=== PATIENT | female | born 2000 | race Caucasian/White ===

== ENCOUNTER 2025-03-28 18:00 | Emergency (ER) | payer BC, SELFPAY ==
[2025-03-28 18:11] VITALS: BP 128/75; PULSE 70; RESP 18; TEMP 37.1; O2SAT 100; BMI 36.0
--- NOTE | 2025-03-28 18:19 | ED_ITS ---
<Statement entered by José Miguel Adames MD - 03/28/25 20:27> I was consulted by the [facility], and we discussed the complexity of the problems being addressed. I approved the treatment and management plan for this patient's care in the emergency department, thus performing a substantive portion of the medical decision making. José Miguel Adames MD, KIKA, FACEP Discharge Plan Disposition Patient Disposition: Home, Self-Care Condition: Good Prescriptions Prescriptions: No Action azithromycin 250 mg tablet See Rx Instructions PO .COMPLEX Qty: 6 0RF Rx Instructions: For 250 mg dose pack: take 500 mg today (day 1), then 250 mg for 4 days (days 2-5) PO fluticasone propionate [Flonase Allergy Relief] 50 mcg/actuation spray,suspension 1 spray intranasal DAILY Qty: 10 1RF Rx Instructions: administer into each nostril Referrals Follow up/Referrals: Kim Chappell MD [Primary Care Provider, Medical] - See instructions Activity Restrictions/Add. Instructions Additional Instructions/Restrictions: I recommend Tylenol alternating with ibuprofen for pain and swelling. Wear your finger splint for comfort. If you have any new or worsening signs or symptoms follow-up with your PCP return to the ER as needed. Clinical Impressions Clinical Impression: Superficial laceration of fingernail Print Language Print Language: Greenlandic Discharge ED Provider: José Miguel Adames General Adult HPI General Chief complaint: Extremity Injury, Upper Stated complaint: Sent by [facility] Smashed L hand Index Finger Time Seen by Provider: 03/28/25 18:19 Mode of Arrival: Ambulatory Source of Information: Patient Description of Symptoms (Recalled from ER Triage Doc. by RN): PT arrived for evaluation of left pointer finger, patient smashed finger at 1200 with two stones. PT took Tylenol at 1230. Denies blood thinners. PT doesnt recall receiving a tetanus shot within the last 5 years. PT did go to a [facility] and advised her to come tot he ED r/t having acrylic nails. History of Present Illness HPI narrative: Patient presents for evaluation of left finger injury. Patient smashed the tip of her left index finger between 2 rocks. She has acrylic nails and was seen at the [facility] but sent here for further evaluation. She denies any numbness or tingling loss of motor or sensory. Related Data Previous Rx's ?Medication ?Instructions ?Recorded azithromycin 250 mg tablet See Rx Instructions PO .COM PLEX #6 12/29/22 tabs fluticasone propionate 50 1 spray intranasal DAILY #10 mL 12/29/22 mcg/actuation nasal spray,suspension (Flonase Allergy Relief) Allergies Allergy/AdvReac Type Severity Reaction Status Date / Time amoxicillin (AMOXICILLIN) Allergy Mild Verified 12/29/22 12:59 [facility] Disclaimer: The information contained in this section may have been updated after the pat ient was seen, as this information can be updated by other users. Surgical History (Updated 12/29/22 @ 13:31 by Aubrie Barnhart APRN) History of tonsillectomy Social History (Updated 12/29/22 @ 13:01 by Roslyn Mccallum CMA) Smoking Status: Current every day smoker alcohol intake: never substance use type: denies use current occupational status: employed Travel in the last 8 weeks?: None marital status: single Have you lived/traveled outside [place] in past 30 days?: No Contact w/someone who lives/traveled outside US past 30 days?: No Exposure to someone with infectious disease in past 14 days?: No Do you have a fever (greater than 100.4 F or 38 C)?: No Have you tested positive for COVID-19?: No Exposed to someone with COVID-19 in past 14 days?: No Do you have a sore throat?: No Do you have a cough?: No Do you have any weakness?: No Do you have any diarrhea?: No Are you experiencing any unusual bleeding?: No Do you have any muscle aches/pain?: No Do you have any abdominal pain?: No Are you experiencing loss of taste or smell?: No ROS Obtained: Yes Systems reviewed as appropriate & no additional complaints except as documented Physical Exam General General appearance: alert and in no apparent distress Respiratory Respiratory exam: Present normal lung sounds bilaterally Cardiovascular Cardiovascular exam: Present regular rate Neurological Exam Neurological exam: Present alert and oriented X3 Medical Decision Making Medical Records Screening: Per USPSTF and CDC recommendations, given the prevalence of disease in our region, it is our hospital?s policy to screen for HIV and viral Hepatitis for all patients aged 18 and over and those with ongoing risk factors. Silas Inquiry Pt receiving controlled substance: No Vital Signs: 03/28/25 18:11 Temperature 98.7 F Temperature Source Oral Pulse Rate [Right] 70 Respiratory Rate 18 Blood Pressure [Right Arm] 128/75 Blood Pressure Mean [Right Arm] 92 02 Sat by Pulse Oximetry 100 Oxygen Delivery Method Room Air Orders (Tests/Meds): ED MEDICATIONS Discontinued Medications Generic Name Dose Route Start Last Admin Trade Name Maria Teresa PRN Reason Stop Dose Admin Acetaminophen 1,000 mg 03/28/25 18:22 03/28/25 18:36 Acetaminophen 500mg Tab PO 03/28/25 18:23 1,000 mg ONCE ONE Administration Ibuprofen 800 mg 03/28/25 18:22 03/28/25 18:37 Ibuprofen 400 Mg Tablet PO 03/28/25 18:23 800 mg ONCE ONE Administration Tetanus/Reduced Diphtheria/Acell Pertussis 0.5 ml 03/28/25 18:25 03/28/25 18:37 Tet/Diphth/Pert-Adult 0.5ml Syringe IM 03/28/25 18:26 0.5 ml .ONCE ONE Administration ORDERS Category Date Time Status Finger XR left minimum 2 views [XR finger LT min 2V] Exams 03/28/25 18:21 Taken Stat Medical Decision Narrative: In summary patient is a 24-year-old female who presents to the emergency department for evaluation of left index finger injury. Patient is hemodynamically stable upon arrival, febrile. Physical exam is remarkable for a fracture of her artificial nail that appears to go down to her normal nail. It is only the tip and it does not extend into the cuticle. He is neurovascularly intact distally with full range of motion. Differential diagnosis includes nail fracture versus DIP fracture. Initial workup will be conducted with plain film x-rays. Initial interventions include Tylenol and ibuprofen and Tdap. Initial workup reviewed by me and my informal interpretation shows no acute fracture prior to radiology read. Please evaluate for formal dictation.. Given this that the fracture does not extend to the DermaMatrix plan is to Dermabond the fracture back together including the artificial nail. Plan is for finger splint for comfort Tylenol and ibuprofen as needed for pain and swelling and if should she have any persistent new or worsening signs or symptoms follow-up with the PCP return to the ER as needed. Critical Care Critical Care Time Critical Care Time: No
--- NOTE | 2025-03-28 18:21 | XR_ITS ---
PROCEDURE INFORMATION: Exam: XR Left Finger(s) Exam date and time: 03/28/2025 6:25 PM Age: 24 years old Clinical indication: Pain; Finger(s); Left; Additional info: Smashed tip of left index finger TECHNIQUE: Imaging protocol: Radiologic exam of the left fingers. Views: Minimum 2 views. COMPARISON: No relevant prior studies available. FINDINGS: Bones/joints: Normal. No acute fracture identified. Soft tissues: Normal. IMPRESSION: No acute findings.
[2025-03-28] MEDS: ACETAMINOPHEN 500MG TAB 1000 MG PO (18:36)
[2025-03-28] MEDS: IBUPROFEN 400 MG TABLET 800 MG PO (18:37)
[2025-03-28] MEDS: TET/DIPHTH/PERT-ADULT 0.5ML SYRINGE 0.5 ML IM (18:37)
[2025-03-28 18:48] VITALS: BP 126/84; PULSE 86; RESP 16; TEMP 36.6; O2SAT 99
== END 2025-03-28 18:50 | disposition home or self-care (01) ==
PROVIDERS: Emergency Provider Student in an Organized Health Care Education/Training Program; PCP Family Medicine
DX: S61.311A Laceration without foreign body of left index finger with damage to nail, initial encounter (principal); W20.8XXA Other cause of strike by thrown, projected or falling object, initial encounter; F17.210 Nicotine dependence, cigarettes, uncomplicated; Z23 Encounter for immunization
CPT/HCPCS: 73140; 90471; 90715; 99283

== ENCOUNTER 2025-09-21 11:00 | Outpatient (CLI) | payer BC, SELFPAY ==
--- OUTSIDE RECORDS SUMMARY | 2025-09-24 11:45 | XMS_ITS | Clinical Summary ---
[facility] Organization [facility] Address [address] [place] [address] Care Team Providers Care Vmware Consultant Name Role Phone MistiKim ayala Rosalee TREVIÑO Primary Care Provider [phone] Allergies Active Allergy Reactions Criticality Noted Date Comments Amoxicillin Rash Low 08/07/2022 Penicillins Rash Low 08/07/2022 Medications FLUoxetine (PROzac) 10 MG capsuleIndicati ons:Anxiety Take 1 capsule by mouth Daily. 90 capsule 1 03/30/2025 Active hydrOXYzine (ATARAX) 25 MG tabletIndicatio ns:Anxiety Take 0.5-1 tablets by mouth Every 6 (Six) Hours As Needed for Anxiety. 60 tablet 5 03/30/2025 Active Active Problems Problem Noted Date Diagnosed Date Body mass index (BMI) of 38.0 to 38.9 in adult 1 Anxiety 01/19/2024 Immunizations Immunization Administration Dates Next Due 31-influenza Vac Quardvalent Preservativ 08/17/2018 DTaP, Unspecified 01/17/2007, 4,2002,10/23,2002 Fluzone (or Fluarix & Flulav al for VFC) >6mos 08/19/2023 HPV, Unspecified 04/13/2014 Hep A, 2 Dose 05/24/2018,01/17/2007 Hep B, Unspecified 2002,2002, 002 HiB 12/28/2003, 3,2002,08/22 Hpv9 08/17/2018 MMR 01/17/2007,09/28/2003 Meningococcal MCV4P (Menactra) 08/17/2018 Meningococcal, Unspecified 04/13/2014 PEDS-Pneumococcal Conjugate (PCV7) 06/22,2002,2002,08/22 Pneumococcal Conjugate Unspecified 06/22,2002,2002,08/22 Polio, Unspecified 01/17/2007, 3,2002,08/22 Tdap 03/28/2025,04/13/2014 Varicella 04/13/2014,01/17/2007 Family History Medical History Relation Name Comments Diabetes Father Hypertension Father Diabetes Mother Hypertension Mother Relation Name Status Comments Father Alive Mother Alive Social History Tobacco Use Types Packs/Day Years Used Date Smoking Tobacco: Never Smokeless Tobacco: Never Tobacco Cessation:Counseling Given: Not Answered Alcohol Use Standard Drinks/Week Comments Never 0 (1 standard drink = 0.6 oz pur e alcohol) PHQ-2 Answer Date Recorded Retired PHQ-9: Brief Depression Severity Measure Score 0 08/19/2023 PHQ-2 Answer Date Recorded Patient Health Questionnaire-2 Score 0 03/30/2025 Comments Unknown Sex and Gender Information Value Date Recorded Sex Assigned at Not on file Legal Sex Female 12:01 PM EDT Gender Identity Not on file Sexual Orientation Not on file Last Filed Vital Signs Vital Sign Reading Time Taken Comments Blood Pressure 122/70 03/30/2025 4:02 PM EDT Pulse 74 03/30/2025 4:02 PM EDT Temperature 36.7 C (98 F) 03/30/2025 4:02 PM EDT Respiratory Rate 18 03/30/2025 4:02 PM EDT Oxygen Saturation 98% 03/30/2025 4:02 PM EDT Inhaled Oxygen Concentration - - Weight 107 kg (236 lb 3.2 oz) 03/30/2025 4:02 PM EDT Height 165.1 cm (5' 5 ) 03/30/2025 4:02 PM EDT Body Mass Index 39.31 03/30/2025 4:02 PM EDT Plan of Treatment Upcoming Encounters Date Type Department Care Team (Late st Contact Info) Description 10/01/2025 3:30 PM EST Office Visit [facility] [address] [place], [place] [id number] Kim Chappell, DO [address] [place] [address] Health Maintenance Due Date Last Done Comments Annual Gynecologic Pelvic and Breast Exam 2002 MENINGOCOCCAL B VACCINE (1 of 2 - Standard) 2018 PAP SMEAR 2023 ANNUAL PHYSICAL 08/19/2024 08/19/2023, 08/07/2022 INFLUENZA VACCINE 05/25/2025 08/19/2023, 08/17/2018 TDAP/TD VACCINES (3 - Td or Tdap) 03/28/2035 03/28/2025, 04/13/2014 Pneumococcal Vaccine 0-49 Aged Out 2002, 06/22/2003, 2002, Additional history exists No longer eligible based on patient's age to complete this topic HPV VACCINES Completed 08/17/2018, 04/13/2014 HEPATITIS C SCREENING Completed 08/07/2022 Procedures Procedure Name Priority Date/Time Associated Diagnosis Comments HEPATITIS C ANTIBODY Routine 08/07/2022 3:46 PM EDT Encounter for hepatitis C screening test for low risk patient from Last 3 Months or Most Recently Relevant to Health Maintenance Results * Hepatitis C Antibody (08/07/2022 3:46 PM EDT) Hep C Virus Ab <0.1 0.0 - 0.9 s/co ratio [facility] Comment: Negative: < 0.8 Indeterminate: 0.8 - 0.9 Positive: > 0.9 HCV antibody alone does not differentiate between previous resolved infection and active infection. The CDC and current clinical guidelines recommend that a positive HCV antibody result be followed up with an HCV RNA test to support the diagnosis of acute HCV infection. [facility] offers Hepatitis C Virus (HCV) RNA, Diagnosis, MATTHEW (024206) and Hepatitis C Virus (HCV) Antibody with reflex to Quantitative Real-time PCR ([id number]). Blood 08/07/2022 3:46 PM EDT 08/07/2022 Narrative [facility] (AMBULATORY) - 08/08/2022 2:14 PM EDT Performed at: 01 - [facility] [address] [place], [place] [id number] Sanforizing Machine Operator: Meliton Eddy PhD, Phone: [phone] Kim Chappell DO LAB BLOOD ORDERABLES Final Result [facility] (AMBULATORY) [address] [place] [address], [facility] [address] [place] [address], from Last 3 Months or Most Recently Relevant to Health Maintenance Insurance PPO Care Teams Vmware Consultant Relationship Specialty Start Date End Date Kim Chappell DO [address] [place] [address] PCP - General Family Medicine 08/07/22
== END 2025-09-21 23:59 ==
LOC: LAB.DROPOF 09-24 11:01
PROVIDERS: PCP Family Medicine; Visit Provider Student in an Organized Health Care Education/Training Program
DX: R35.0 Frequency of micturition (principal)
CPT/HCPCS: 87086

== ENCOUNTER 2025-10-24 07:31 | Outpatient (CLI) | payer BC, SELFPAY ==
--- OUTSIDE RECORDS SUMMARY | 2025-10-01 15:30 | XMS_ITS | Encounter Summary ---
[facility] Address [address] [place] [address] Care Team Providers Care Boat Dispatcher Name Role Phone Kim Chappell DO Primary Care Provider Reason for Visit * Reason Comments 6 mo f/u Encounter Details Date Type Department Care Team (Late st Contact Info) Description 10/01/2025 3:30 PM EST Office Visit [facility] [address] [facility] [place] [address] Kim Chappell DO [address] [facility] [place] [address] Anxiety (Primary Dx); Vitamin D deficiency; Prediabetes; Abdominal bloating; Chronic constipation; Encounter for weight management Social History Tobacco Use Types Packs/Day Years Used Date Smoking Tobacco: Never Smokeless Tobacco: Never Alcohol Use Standard Drinks/Week Comments Never 0 [...] on file Sexual Orientation Not on file documented as of this encounter Last Filed Vital Signs Vital Sign Reading Time Taken Comments Blood Pressure 124/74 10/01/2025 3:41 PM EST Pulse 78 10/01/2025 3:41 PM EST Temperature 36.4 C (97.5 F) 10/01/2025 3:41 PM EST Respiratory Rate 14 10/01/2025 3:41 PM EST Oxygen Saturation 99% 10/01/2025 3:41 PM EST Inhaled Oxygen Concentration - - Weight 110 kg (243 lb 6.4 oz) 10/01/2025 3:41 PM EST Height 165.1 cm (5' 5 ) 10/01/2025 3:41 PM EST Body Mass Index 40.5 10/01/2025 3:41 PM EST documented in this encounter Progress Notes * Kim Chappell, DO - 10/01/2025 3:30 PM EST Chief Complaint 6 mo f/u Subjective Annel Garcia presents to [facility] History of Present Illness The patient presents for evaluation of anxiety, weight management, constipation, and bloating. She is accompanied by her mother. Anxiety She reports a positive response to her current medication regimen, which includes daily fluoxetine 10 mg and as-needed hydroxyzine. No anxiety episodes have occurred, and she has not required a refill of her hydroxyzine prescription. Weight loss efforts Despite maintaining a consistent routine over the past year, including daily lunch intake, calorie deficit, and regular exercise, weight reduction has plateaued between the 230 to 240 lbs. Her highest recorded weight was 250 pounds, and she has since lost some weight. Soda has been eliminated from her diet, and she consumes approximately six glasses of water daily. She alternates between calorie deficiency and fasting, currently limiting herself to one meal per day. Discomfort after consuming bread has led her to suspect a potential sensitivity to gluten. Frequent bloating and constipation are also reported. MiraLAX has been attempted for constipation management but has proven ineffective. A colon cleanse is used once a week; without it, bowel movements do not occur for 4 to 5 days, worsening bloating. An increase in constipation has been noted since initiating her weight loss journey. Her last blood work was done over a year ago, revealing a low vitamin D level. She notes that her vitamin D level was probably elevated before she lost weight, and she cut out milk when she started losing weight. Diet: Eliminated soda, consumes approximately six glasses of water daily, alternates between calorie deficiency and fasting, currently limiting herself to one meal per day. The following portions of the patient's history were reviewed and updated as appropriate: allergies, current medications, past family history, past medical history, past social history, past surgicalhistory, and problem list. Objective Physical Exam Vitals and nursing note reviewed. Pulmonary: Effort: Pulmonary effort is normal. No respiratory distress. Neurological: Mental Status: She is alert. Psychiatric: Mood and Affect: Mood normal. Behavior: Behavior normal. Physical Exam Result Review : Results Assessment and Plan Diagnoses and all orders for this visit: 1. Anxiety (Primary) - Vitamin D,25-Hydroxy - Hemoglobin A1c - CBC (No Diff) - Comprehensive Metabolic Panel - TSH Rfx On Abnormal To Free T4 - Celiac Comprehensive Panel 2. Vitamin D deficiency - Vitamin D,25-Hydroxy - Hemoglobin A1c - CBC (No Diff) - Comprehensive Metabolic Panel - TSH Rfx On Abnormal To Free T4 - Celiac Comprehensive Panel 3. Prediabetes - Vitamin D,25-Hydroxy - Hemoglobin A1c - CBC (No Diff) - Comprehensive Metabolic Panel - TSH Rfx On Abnormal To Free T4 - Celiac Comprehensive Panel 4. Abdominal bloating - Celiac Comprehensive Panel 5. Chronic constipation - Celiac Comprehensive Panel 6. Encounter for weight management - Semaglutide-Weight Management (Wegovy) 0.5 MG/0.5ML solution auto-injector; Inject 0.5 mL under the skin into the appropriate area as directed 1 (One) Time Per Week. Dispense: 2 mL; Refill: 0 Assessment & Plan 1. Anxiety: - Her anxiety is well-managed with the current dosage of fluoxetine 10 mg daily. - She has not experienced any anxiety and has not needed to use hydroxyzine. - She will continue with the current regimen of fluoxetine 10 mg daily and hydroxyzine as needed. 2. Weight management: - She has been experiencing difficulty losing weight despite maintaining a calorie deficit and regular exercise. - Adipex was discussed as a temporary option for weight loss, but due to potential side effects such as increased heart rate and blood pressure, it is limited to short-term use. Wegovy injections were recommended as a long-term option. - The initial dose of Wegovy will be 0.25 mg once weekly for 4 weeks, followed by an increase to 0.5 mg once weekly for the subsequent 4 weeks, provided she tolerates the medication well. The dosage will then be increased to 1 mg once weekly for 4 weeks, then to 1.7 mg once weekly for 4 weeks, and finally to 2.4 mg once weekly. If she experiences any side effects, the dosage will be reduced and gradually increased again. 3. Constipation: - She reports chronic constipation, which may be contributing to her bloating. - She has tried MiraLAX without success. - She is advised to continue using her current colon cleanse regimen. If her constipation persists or worsens, a prescription medication for chronic constipation will be considered. 4. Bloating: - She experiences significant bloating, which may be related to her constipation. - A low FODMAP diet was recommended to help identify and eliminate foods that may be causing her symptoms. A celiac panel will be included in her lab work to rule out gluten sensitivity. 5. Health maintenance: - Her last blood work was done over a year ago. Her vitamin D level was low at that time. She has started taking a vitamin D supplement. - Blood work will be ordered to monitor her A1c levels and check her vitamin D levels. Follow Up Return in about 3 months (around 12/30/2025) for Recheck. Patient or patient career services representative verbalized consent for the use of Ambient Listening during the visit with Kim Chappell DO for chart documentation. 10/01/2025 15:44 EST Patient was given instructions and counseling regarding her condition or for health maintenance advice. Please see specific information pulled into the AVS if appropriate. documented in this encounter Plan of Treatment Upcoming Encounters Date Type Department Care Team (Late st Contact Info) Description 01/02/2026 3:15 PM EDT Office Visit [facility] [address] [address] Kim Chappell DO [address] [address] documented as of this encounter Procedures Procedure Name Priority Date/Time Associated Diagnosis Comments TSH RFX ON ABNORMAL TO FREE T4 Routine 10/01/2025 4:36 PM EST Anxiety Vitamin D deficiency Prediabetes CELIAC COMPREHENSIVE PANEL Routine 10/01/2025 4:36 PM EST Anxiety Vitamin D deficiency Prediabetes Abdominal bloating Chronic constipation VITAMIN D,25-HYDROXY Routine 10/01/2025 4:36 PM EST Anxiety Vitamin D deficiency Prediabetes CBC (NO DIFF) Routine 10/01/2025 4:36 PM EST Anxiety Vitamin D deficiency Prediabetes HEMOGLOBIN A1C Routine 10/01/2025 4:36 PM EST Anxiety Vitamin D deficiency Prediabetes COMPREHENSIVE METABOLIC PANEL Routine 10/01/2025 4:36 PM EST Anxiety Vitamin D deficiency Prediabetes documented in this encounter Results * Celiac Comprehensive Panel (10/01/2025 4:36 PM EST) Pathologist [facility] Gliadin Deamidated Peptide Ab, IgA 6 0 - 19 units [facility] Comment: Negative 0 - 19 Weak Positive 20 - 30 Moderate to Strong Positive >30 Deaminated Gliadin Ab IgG 4 0 - 19 units [facility] Comment: Negative 0 - 19 Weak Positive 20 - 30 Moderate to Strong Positive >30 Tissue Transglutaminase IgA <2 0 - 3 U/mL [facility] Comment: Negative 0 - 3 Weak Positive 4 - 10 Positive >10 Tissue Transglutaminase (tTG) has been identified as the endomysial antigen. Studies have demonstr- ated that endomysial IgA antibodies have over 99% specificity for gluten sensitive enteropathy. Tissue Transglutaminase IgG 5 0 - 5 U/mL [facility] Comment: Negative 0 - 5 Weak Positive 6 - 9 Positive >9 Endomysial IgA Negative Negative [facility] IgA 131 87 - 352 mg/dL [facility] Blood 10/01/2025 4:36 PM EST 10/01/2025 [facility]) - 10/02/2025 4:11 PM EST Performed at: [address] [place] [address] [id number] Cell Assembly Pinner: Meliton Eddy PhD, Phone: [phone] Patient Fasting: N Kim Chappell DO LAB BLOOD ORDERABLES Final Result Performing Organization Address [facility]/ZIP Co de Phone Number [facility] [address] [place] [address], [place] [phone] [facility] [address] [place] [address], [place] [phone] * TSH Rfx On Abnormal To Free T4 (10/01/2025 4:36 PM EST) TSH 1.740 0.450 - 4.500 uIU/mL [facility] Blood 10/01/2025 4:36 PM EST 10/01/2025 Narrative [facility] - 10/02/2025 4:11 PM EST Performed at: - [facility] [address] [place] [address] [id number] Cell Assembly Pinner: Meliton Eddy PhD, Phone: [phone] Patient Fasting: N Kim Chappell DO LAB BLOOD ORDERABLES Final Result Performing Organization Address City/[facility]/ZIP Co de Phone Number [facility] [address] [place] [address], [place] [phone] [facility] [address] [place] [address], [place] [phone] * (ABNORMAL) Comprehensive Metabolic Panel (10/01/2025 4:36 PM EST) Glucose 92 70 - 99 mg/dL [facility] BUN 24(H) 6 - 20 mg/dL [facility] Creatinine 0.88 0.57 - 1.00 mg/dL [facility] EGFR Result 95 >59 mL/min/1.7 3 [facility] BUN/Creatinine Ratio 27(H) 9 - 23 [facility] Sodium 139 134 - 144 mmol/L [facility] Potassium 4.5 3.5 - 5.2 mmol/L [facility] Chloride 102 96 - 106 mmol/L [facility] Total CO2 22 20 - 29 mmol/L [facility] Calcium 9.7 8.7 - 10.2 mg/dL [facility] Total Protein 6.9 6.0 - 8.5 g/dL [facility] Albumin 4.8 4.0 - 5.0 g/dL [facility] Globulin 2.1 1.5 - 4.5 g/dL [facility] Total Bilirubin <0.2 0.0 - 1.2 mg/dL [facility] Alkaline Phosphatase 81 41 - 116 IU/L [facility] AST (SGOT) 21 0 - 40 IU/L [facility] ALT (SGPT) 16 0 - 32 IU/L [facility] Blood 10/01/2025 4:36 PM EST 10/01/2025 Narrative [facility] (AMBULATORY) - 10/02/2025 4:11 PM EST Performed at: [address] [place] [address] [id number] Cell Assembly Pinner: Meliton Eddy PhD, Phone: [phone] Patient Fasting: N us Kim Chappell DO LAB BLOOD ORDERABLES Final Result [facility] [address] [place] [address], [facility] [address] [place] [id number], * CBC (No Diff) (10/01/2025 4:36 PM EST) WBC 9.3 3.4 - 10.8 x10E3/uL [facility] RBC 4.79 3.77 - 5.28 x10E6/uL [facility] Hemoglobin 14.7 11.1 - 15.9 g/dL [facility] Hematocrit 44.7 34.0 - 46.6 % [facility] MCV 93 79 - 97 fL [facility] MCH 30.7 26.6 - 33.0 pg [facility] MCHC 32.9 31.5 - 35.7 g/dL [facility] RDW 12.2 11.7 - 15.4 % [facility] Platelets 338 150 - 450 x10E3/uL [facility] Blood 10/01/2025 4:36 PM EST 10/01/2025 Narrative [facility] ([facility]) - 10/02/2025 4:11 PM EST Performed at: [address] [place] [address] [place] [address] [id number] Cell Assembly Pinner: Meliton Eddy PhD, Phone: [phone] Patient Fasting: N [facility] Pro[facility]on LAB BLOOD ORDERABLES Final Result Performing Organization Address City/[facility]/ZIP Co de Phone Number [facility] (AMBULATORY) [address] [place] [address], [facility] [address] [place] [address], * Hemoglobin A1c (10/01/2025 4:36 PM EST) [facility] Hemoglobin A1C 5.1 4.8 - 5.6 % [facility] Comment: Prediabetes: 5.7 - 6.4 Diabetes: >6.4 Glycemic control for adults with diabetes: <7.0 Blood 10/01/2025 4:36 PM EST 10/01/2025 [facility] ([facility]) - 10/02/2025 4:11 PM EST Performed at: [address] [place] [address] [id number] Cell Assembly Pinner: Meliton Eddy PhD, Phone: [phone] Patient Fasting: N Kim Rosalee Misti DO LAB BLOOD ORDERABLES Final Result Performing Organization Address City/[facility]/ZIP Co de Phone Number [facility] (AMBULATORY) [address] [place] [address], [place] [phone] [facility] [address] [place] [address], * (ABNORMAL) Vitamin D,25-Hydroxy (10/01/2025 4:36 PM EST) Pathologist [facility] 25 Hydroxy, Vitamin D 26.4(L) 30.0 - 100.0 ng/mL [facility] Comment: Vitamin D deficiency has been defined by the Hooks of Medicine and an Endocrine Society practice guideline as a level of serum 25-OH vitamin D less than 20 ng/mL (1,2). The Endocrine Society went on to further define vitamin D insufficiency as a level between 21 and 29 ng/mL (2). 1. IOM (Hooks of Medicine). 2010. Dietary reference intakes for calcium and D. [place]: The National Academies Press. 2. Valentin MF, Dipika RHOADES, Viviane GAXIOLA, et al. Evaluation, treatment, and prevention of vitamin D deficiency: an Endocrine Society clinical practice guideline. JCEM. 2010; 96(7):1911-30. Blood 10/01/2025 4:36 PM EST 10/01/2025 Narrative [facility] (AMBULATORY) - 10/02/2025 4:11 PM EST Performed at: 01 - [facility] [id number] Cell Assembly Pinner: Meliton Eddy PhD, Phone: [phone] Patient Fasting: N Kim Chappell DO LAB BLOOD ORDERABLES Final Result Performing Organization Address City/State/[facility] Co de Phone Number [facility] [address] [place] [address], [place] [phone] [facility] [address] [place] [address], [place] [phone] documented in this encounter Visit Diagnoses Diagnosis Anxiety- Primary Anxiety state, unspecified Vitamin D deficiency Prediabetes Other abnormal glucose Abdominal bloating Flatulence, eructation, and gas pain Chronic constipation Unspecified constipation Encounter for weight management documented in this encounter Care Teams Boat Dispatcher Relationship Specialty Start Date End Date Kim Chappell DO [address] [address] PCP - General Family Medicine 08/07/22 documented as of this encounter
[2025-10-24 20:08] LABS: Coronavirus 19, PCR Not Detected (NotDetected); Influenza A, PCR Not Detected (NotDetected); Influenza B, PCR Not Detected (NotDetected)
--- OUTSIDE RECORDS SUMMARY | 2025-10-25 07:33 | XMS_ITS | Encounter Summary ---
[facility] Address [address] [place] [address] Care Team Providers Care Suppression Crew Leader Name Role Phone Kim Chappell DO Primary Care Provider Reason for Visit * Reason Onset Date Comments [facility] 10/02/2025 Encounter Details Date Type Department Care Team (Late st Contact Info) Description 10/02/2025 Prior Authorization [facility] [address] [facility] [place] [address] Kim Chappell DO [address] [facility] [place] [address] [facility] Social History Tobacco Use Types Packs/Day Years [...] on file documented as of this encounter Miscellaneous Notes * Telephone Encounter - Isabella Miller MA - 10/09/2025 10:22 AM EST Denied We denied your request because this drug (Wegovy) is not a benefit on your plan when used for weight loss alone, it is not covered. We based this decision on your Pharmacy Health Plan Benefits. Medications that are not medically necessary are an exclusion under your plan benefits and are not covered. * Telephone Encounter - Isabella Miller MA - 10/04/2025 9:47 AM EST [facility] (Ramos: [id number]) Sent * Telephone Encounter - Isabella Miller MA - 10/02/2025 11:04 AM EST [facility] (Ramos: [id number]) submitted with error. Tried to contact [facility] to cancel/delete PA but no oneever responded. Called insurance and cancelled PA. ([facility] pharmacy PA # [phone]) documented in this encounter Plan of Treatment Upcoming Encounters Date Type Department Care Team (Late st Contact Info) Description 01/02/2026 3:15 PM EDT Office Visit [facility] [address] [address] Kim Chappell DO [address] [address] documented as of this encounter Visit Diagnoses Not on filedocumented in this encounter Care Teams Suppression Crew Leader Relationship Specialty Start Date End Date Kim Chappell DO [address] [address] PCP - General Family Medicine 08/07/22 documented as of this encounter
--- OUTSIDE RECORDS SUMMARY | 2025-10-25 07:33 | XMS_ITS | Encounter Summary ---
[facility] Address [address] [place] [address] Care Team Providers Care Other Sales Support Worker Name Role Phone Kim Chappell DO Primary Care Provider Encounter Details Date Type Department Care Team (Late Contact Info) Description 10/02/2025 Results Follow-Up [facility] [address] [facility] [place] [address] Kim Chappell DO [address] [facility] [place] [address] Social History Tobacco Use Types Packs/Day Years [...] on file documented as of this encounter Plan of Treatment Upcoming Encounters Date Type Department Care Team (Late st Contact Info) Description 01/02/2026 3:15 PM EDT Office Visit [facility] [address] [facility] [place] [address] Kim Chappell DO [address] [place] [address] documented as of this encounter Visit Diagnoses Not on filedocumented in this encounter Care Teams Other Sales Support Worker Relationship Specialty Start Date End Date Kim Chappell DO [address] [place] [address] PCP - General Family Medicine 08/07/22 documented as of this encounter
--- OUTSIDE RECORDS SUMMARY | 2025-10-25 07:33 | XMS_ITS | Clinical Summary ---
[facility] Address [address] [place] [address] Care Team Providers Care Building Construction Estimator Name Role Phone MistiKim ayala Primary Care Provider Allergies Active Allergy Reactions Criticality Noted Date Comments Amoxicillin Rash Low 08/07/2022 Penicillins Rash Low 08/07/2022 Medications hydrOXYzine (ATARAX) 25 MG tabletIndicati ons:Anxiety Take 0.5-1 tablets by mouth Every 6 (Six) Hours As Needed for Anxiety. 60 tablet 5 03/30/20 25 Active FLUoxetine (PROzac) 10 MG capsuleIndicat ions:Anxiety Take 1 capsule by mouth once daily 90 capsule 09/28/20 25 Active Semaglutide-We ight Management (Wegovy) 0.5 MG/0.5ML solution auto-injectorI ndications:Enc ounter for weight management Inject 0.5 mL under the skin into the appropriate area as directed 1 (One) Time Per Week. 2 mL 10/01/20 25 Active FLUoxetine (PROzac) 10 MG capsuleIndicat ions:Anxiety Take 1 capsule by mouth Daily. 90 capsule 1 03/30/20 25 025 Discontinued Active Problems Problem Noted Date Diagnosed Date Body mass index (BMI) of 38.0 to 38.9 in adult 1 Anxiety 01/19/2024 Encounters Date Type Department Care Team Description 10/02/2025 Results Follow-Up [facility] [address], [place] [address] Kim Chappell DO 10/02/2025 Prior Authorization [facility] MEDICINE [address], [place] [address] Kim Chappell DO [place] 10/01/2025 3:30 PM EST Office Visit [facility] MED[facility]INE [address], [place] [address] Kim Chappell DO Anxiety (Primary Dx); Vitamin D deficiency; Prediabetes; Abdominal bloating; Chronic constipation; Encounter for weight management 10/01/2025 Travel 09/28/2025 Refill [facility] MED[facility] [address], [place] [address] Kim Chappell DO Anxiety from Last 3 Months Immunizations Immunization Administration Dates Next Due -influenza Vac Quardvalent Preservativ 08/17/2018 DTaP, Unspecified 01/17/2007, [...] Mass Index 40.5 10/01/2025 3:41 PM EST Plan of Treatment Upcoming Encounters Date Type Department Care Team (Late st Contact Info) Description 01/02/2026 3:15 PM EDT Office Visit [facility] [address] [place] [address] Kim Chappell DO [address] [place] [address] Health Maintenance Due Date Last Done Comments Annual Gynecologic Pelvic and Breast Exam 2002 MENINGOCOCCAL B VACCINE (1 of 2 - Standard) 2018 PAP SMEAR 2023 ANNUAL PHYSICAL 08/19/2024 08/19/2023, 08/07/2022 INFLUENZA VACCINE 03/30/2026 08/19/2023, 08/17/2018 Postponed from 05/25/2025 (Patient Refused) TDAP/TD VACCINES (3 - Td or Tdap) 03/28/2035 03/28/2025, 04/13/2014 Pneumococcal Vaccine 0-49 Aged Out 2002, 06/22/2003, 2002, Additional history exists No longer eligible based on patient's age to complete this topic HPV VACCINES Completed 08/17/2018, 04/13/2014 HEPATITIS C SCREENING Completed 08/07/2022 Procedures Procedure Name Priority Date/Time Associated Diagnosis Comments CELIAC COMPREHENSIVE PANEL Routine 10/01/2025 4:36 PM EST Anxiety Vitamin D deficiency Prediabetes Abdominal bloating Chronic constipation TSH RFX ON ABNORMAL TO FREE T4 Routine 10/01/2025 4:36 PM EST Anxiety Vitamin D deficiency Prediabetes COMPREHENSIVE METABOLIC PANEL Routine 10/01/2025 4:36 PM EST Anxiety Vitamin D deficiency Prediabetes CBC (NO DIFF) Routine 10/01/2025 4:36 PM EST Anxiety Vitamin D deficiency Prediabetes HEMOGLOBIN A1C Routine 10/01/2025 4:36 PM EST Anxiety Vitamin D deficiency Prediabetes VITAMIN D,25-HYDROXY Routine 10/01/2025 4:36 PM EST Anxiety Vitamin D deficiency Prediabetes HEPATITIS C ANTIBODY Routine 08/07/2022 3:46 PM EDT Encounter for hepatitis C screening test for low risk patient from Last 3 Months or Most Recently Relevant to Health Maintenance Results * TSH Rfx On Abnormal To Free T4 (10/01/2025 4:36 PM EST) TSH 1.740 0.450 - 4.500 uIU/mL [facility] Blood 10/01/2025 4:36 PM EST 10/01/2025 Narrative [facility] ([facility]UL[facility]) - 10/02/2025 4:11 PM EST Performed at: 01 - [facility] [id number] Supervisor Powdered Sugar: Meliton Eddy PhD, Phone: [phone] Patient Fasting: N Kim Chappell DO LAB BLOOD ORDERABLES Final Result [facility] (AMBULATORY) [address] [place] [address], [facility] [address] [place] [address], * Celiac Comprehensive Panel (10/01/2025 4:36 PM EST) Gliadin Deamidated Peptide Ab, IgA 6 0 [...] 10/02/2025 4:11 PM EST Performed at: - [facility] [id number] Supervisor Powdered Sugar: Meliton Eddy PhD, Phone: [phone] Patient Fasting: N Kim Chappell DO LAB BLOOD ORDERABLES Final Result [facility] [address] [place] [address], [facility] [address] [place] [address], [place] [phone] * (ABNORMAL) Vitamin D,25-Hydroxy (10/01/2025 4:36 PM EST) 25 Hydroxy, Vitamin D 26.4(L) 30.0 - 100.0 ng/mL [facility] Comment: Vitamin D deficiency has been defined by the Tribune of Medicine and an Endocrine Society practice guideline as a level of serum 25-OH vitamin D less than 20 ng/mL (1,2). The Endocrine Society went on to further define vitamin D insufficiency as a level between 21 and 29 ng/mL (2). 1. IOM (Tribune of Medicine). 2010. Dietary reference intakes for calcium and D. [place]: The National Academies Press. 2. Valentin MF, Dipika RHOADES, Viviane GAXIOLA, et al. Evaluation, treatment, and prevention of vitamin D deficiency: an Endocrine Society clinical practice guideline. JCEM. 2011 Apr; 96(7):1911-30. Blood 10/01/2025 4:36 PM EST 10/01/2025 Narrative [facility] (AMBULATORY) - 10/02/2025 4:11 PM EST Performed at: 01 - [address] [id number] Supervisor Powdered Sugar: Meliton Eddy PhD, Phone: [phone] Patient Fasting: N Kim Chappell DO LAB BLOOD ORDERABLES Final Result Performing Organization Address City/[facility]/ZIP Co de Phone Number [facility] (AMBULATORY) [address] [place] [address], [place] [phone] [facility] [address] [place] [address], [place] [phone] * CBC (No Diff) (10/01/2025 4:36 PM EST) Pathologist [facility] WBC 9.3 3.4 - 10.8 x10E3/uL [facility] [...] - 10/02/2025 4:11 PM EST Performed at: [address] [place] [id number] Supervisor Powdered Sugar: Meliton Eddy PhD, Phone: [phone] Patient Fasting: N Kim Chappell DO LAB BLOOD ORDERABLES Final Result [facility] (AMBULATORY) [address] [place], [place] [id number], [facility] [address] [place], [place] [id number], * Hemoglobin A1c (10/01/2025 4:36 PM EST) Pathologist [facility] Hemoglobin A1C 5.1 4.8 - 5.6 % [facility] Comment: Prediabetes: 5.7 - 6.4 Diabetes: >6.4 Glycemic control for adults with diabetes: <7.0 Blood 10/01/2025 4:36 PM EST 10/01/2025 Narrative [facility] ([facility]UL[facility]ORY) - 10/02/2025 4:11 PM EST Performed at: [address] [id number] Supervisor Powdered Sugar: Meliton Eddy PhD, Phone: [phone] Patient Fasting: N us Kim Rosalee Chappell DO LAB BLOOD ORDERABLES Final Result [facility] ([facility]BULATORY) [address] [place] [address], [place] [phone] [facility] [address] [place] [address], * (ABNORMAL) Comprehensive Metabolic Panel (10/01/2025 4:36 PM EST) Pathologist [facility] Glucose 92 70 - 99 mg/dL [facility] [...] 4:11 PM EST Performed at: [facility] - [facility] [address] [facility] [place], [place] [id number] Supervisor Powdered Sugar: Meliton Eddy PhD, Phone: [phone] Patient Fasting: N Kim Rosalee Misti DO LAB BLOOD ORDERABLES Final Result Performing Organization Address City/[facility]/ZIP Co de Phone Number [facility] (AMBULATORY) [address] [place] [address], [facility] [address] [place] [address], [place] [phone] * Hepatitis C Antibody (08/07/2022 3:46 PM EDT) Pathologist [facility] Hep C Virus Ab <0.1 0.0 - 0.9 s/co ratio [facility] Comment: Negative: < 0.8 Indeterminate: 0.8 - 0.9 Positive: > 0.9 HCV antibody alone does not differentiate between previous resolved infection and active infection. The CDC and current clinical guidelines recommend that a positive HCV antibody result be followed up with an HCV RNA test to support the diagnosis of acute HCV infection. [facility] offers Hepatitis C Virus (HCV) RNA, Diagnosis, MATTHEW (943848) and Hepatitis C Virus (HCV) Antibody with reflex to Quantitative Real-time PCR ([id number]). Blood 08/07/2022 3:46 PM EDT 08/07/2022 Narrative [facility] - 08/08/2022 2:14 PM EDT Performed at: - [address] [id number] Supervisor Powdered Sugar: Meliton Eddy PhD, Phone: [phone] Kim Rosalee Chappell DO LAB BLOOD ORDERABLES Final Result Performing Organization Address City/[facility]/ZIP Co de Phone Number [facility] (AMBULATORY) [address] [place] [address], [facility] [address] [place] [address], from Last 3 Months or Most Recently Relevant to Health Maintenance Insurance PPO Care Teams Building Construction Estimator Relationship Specialty Start Date End Date Kim Chappell DO [address] [place] [address] PCP - General Family Medicine 08/07/22
--- OUTSIDE RECORDS SUMMARY | 2025-10-25 07:33 | XMS_ITS | Encounter Summary ---
[facility] Address [address] [place] [address] Care Team Providers Care Chief Dog License Inspector Name Role Phone Kim Chappell DO Primary Care Provider Reason for Visit * Reason Comments Med Refill Encounter Details Date Type Department Care Team (Late Contact Info) Description 09/28/2025 Refill [facility] [address] [place] [address] Kim Chappell DO [address] [place] [address] Anxiety Social History Tobacco Use Types Packs/Day Years [...] Encounters Date Type Department Care Team (Late Contact Info) Description 01/02/2026 3:15 PM EDT Office Visit [facility] [address] [place] [address] Kim Chappell DO [address] [place] [address] documented as of this encounter Visit Diagnoses Diagnosis Anxiety Anxiety state, unspecified documented in this encounter Care Teams Chief Dog License Inspector Relationship Specialty Start Date End Date Kim Chappell DO [address] [place] [address] PCP - General Family Medicine 08/07/22 documented as of this encounter
--- OUTSIDE RECORDS SUMMARY | 2025-10-25 07:33 | XMS_ITS | Encounter Summary ---
Author Organization [facility] Address [address] [place] [address] Care Team Providers Care Staff Scientist Name Role Phone Kim Chappell DO Primary Care Provider Encounter Details Date Type Department Care Team (Latest Contact Info) Description 10/01/2025 Travel Social History Tobacco Use Types Packs/Day Years [...] Description 01/02/2026 3:15 PM EDT Office Visit [facility] [address] [place] [address] Kim Chappell DO [address] [place] [address] documented as of this encounter Visit Diagnoses Not on filedocumented in this encounter Care Teams Staff Scientist Relationship Specialty Start Date End Date Kim Chappell DO [address] [place], [place] [id number] PCP - General Family Medicine 08/07/22 documented as of this encounter
== END 2025-10-24 23:59 | disposition home or self-care (01) ==
LOC: LAB.DROPOF 10-25 07:31
PROVIDERS: PCP Family Medicine; Visit Provider Nurse Practitioner
DX: R52 Pain, unspecified (principal)
CPT/HCPCS: 87631